=== PATIENT | female | born 1990 | race Caucasian/White ===

== ENCOUNTER 2020-11-12 05:38 | Inpatient (IN) | payer BC ==
[2020-11-12] VITALS (19 sets, daily range): BP systolic 87–119; BP diastolic 44–96; PULSE 50–72; TEMP 97.4–98.2
[~2020-11-12] VITALS: Ht 165.1 cm; Wt 73.8 kg
[~2020-11-12 05:38] MED LIST: LOESTRIN 24 FE1 TAB PO; NORCO 325 MG-7.1 TAB PO
--- NOTE | 2020-11-12 05:45 | NUR ---
G2L0 arrives to unit ambulatory for scheduled section. Clean gown on. Oriented to room, bed in low and locked position, call light within reach. Pt reports feeling good movement, denies contractions, or loss of fluid. Denies headaches, blurry vision or RUQ pain. US and toco explained and applied. Vital signs obtained. Plan of care reviewed. Spouse supportive at bedside. 0600 - 18G IV started in left forearm, admission labs obtained off IV start. Lactated Ringers infusing to gravity. Consents reviewed and signed with patient and spouse.
[2020-11-12 06:15] LABS: BASO % 0.3 % (0.0-2.0); EOS # 0.1 (0.0-0.7); EOS % 0.5 % (0-4.0); GRAN # 9.2 (1.4-6.5); GRAN % 71.4 % (42.2-75.2); HEMOGLOBIN 11.8 g/dl (12.5-16.0); LYMPH # 2.3 (1.2-3.4); LYMPH % 17.7 % (20.0-51.0); MEAN CELL VOLUME 92 fl (80.0-100.0); MEAN CORPUSCULAR HEMOGLOBIN 32 pg (27.0-31.0); MEAN CORPUSCULAR HGB CONC 35 g/dl (33.0-37.0); MEAN PLATELET VOLUME 10.7 fl (7.4-10.4); MONO # 1.2 (0.1-0.6); MONO % 9.6 % (1.7-9.3); PLATELET COUNT 278 K/mm3 (130-400); RED BLOOD COUNT 3.73 M/mm3 (4.10-5.30); REDCELL DISTRIBUTION WIDTH-CV 13.2 % (11.5-14.5)
[2020-11-12 06:17] LABS: HEMATOCRIT 34.2 % (37.0-47.0)
[2020-11-12] MEDS ORDERED: SENNA-S 50 MG-81 TAB PO (06:28)
[2020-11-12] MEDS ORDERED: PRENATAL (06:28)
[2020-11-12] MEDS ORDERED: ZYRTEC 10MG10 MG PO (06:29)
--- NOTE | 2020-11-12 07:15 | NUR ---
0715: POC REVIEWED WITH PT, REVIEWED HEART RATE STRIP, CATEGORY 1 BABY, ALL CONSENTS SIGNED, PT DENIES FURTHER QUESTIONS OR CONCERNS, AMBULATORY TO OR SUITE AT THIS TIME 0732: DELIVERY OF VIABLE FEMALE INFANT BY AT THIS TIME, CARE ASSUMED BY ELSA MERCADO RN 0815: PT TO PACU, STABLE CONDITION, FUNDUS FIRM AT UMBILICAS, LOCHIA WNL, POST OP ASSESSMENT AND VITALS CONTINUED AT THIS TIME, SCD'S ON BLE, CAO DRAINING CLEAR YELLOW URINE, DRESSING WTIH MINIMAL BLOODY SHOW, WILL CONTINUE TO MONITOR FOR INCREASED DRAINAGE TO DRESSING 0845: PT TO NURSERY VIA BED FOR SKIN TO SKIN WITH NEW INFANT, REMAINS STABLE, LOCHIA WNL, FUNDUS FIRM AT UMBILICAS
[2020-11-13 00:25] VITALS: BP 104/69; PULSE 54; TEMP 97.1
[2020-11-13 05:15] VITALS: BP 104/60; PULSE 57; TEMP 97.9
[2020-11-13 06:50] VITALS: BP 99/60; PULSE 54; TEMP 98.1
--- NOTE | 2020-11-13 10:26 | NUR ---
Initial visit attempt; Patient out of room. Linux K[employer] Developer left card of congratulations for the of her daughter and information regarding the availability of spiritual care at our hospital.
[2020-11-13] MEDS ORDERED: IBU800 M1 PO (12:29)
[2020-11-13] MEDS ORDERED: PERCOCET 325 MG1 TA2 PO (12:29)
[2020-11-13 16:23] VITALS: BP 102/63; PULSE 65; TEMP 98.6
[2020-11-13 21:00] VITALS: BP 101/67; PULSE 79; TEMP 97.9
[2020-11-14 08:30] VITALS: BP 109/68; PULSE 71; TEMP 97.6
[2020-11-14 16:25] VITALS: BP 112/68; PULSE 87; TEMP 98.1
== END 2020-11-14 17:23 | disposition home or self-care (01) | DRG 788 ==
LOC: OB 05:38
PROVIDERS: ADMIT Student in an Organized Health Care Education/Training Program
PROC: 10D00Z1 Extraction of Products of Conception, Low, Open Approach (ICD-10-PCS; principal; 2020-11-12)
DX: O32.1XX0 Maternal care for breech presentation, not applicable or unspecified (principal); Z3A.39 39 weeks gestation of pregnancy; Z37.0 Single live birth; O99.62 Diseases of the digestive system complicating childbirth; O99.52 Diseases of the respiratory system complicating childbirth; O99.344 Other mental disorders complicating childbirth; F41.9 Anxiety disorder, unspecified; O99.284 Endocrine, nutritional and metabolic diseases complicating childbirth; E28.2 Polycystic ovarian syndrome; J45.909 Unspecified asthma, uncomplicated; K21.9 Gastro-esophageal reflux disease without esophagitis; Z89.429 Acquired absence of other toe(s), unspecified side
CPT/HCPCS: J0690; J1885; J2370; J2405; J2590; J7120

== ENCOUNTER → 2020-11-21 | Outpatient (CLI) | payer BC ==
[~2020-11-21] MED LIST changes: +IBU800 M1 PO; +PERCOCET 325 MG1 TA2 PO; +PRENATAL; +SENNA-S 50 MG-81 TAB PO; +ZYRTEC 10MG10 MG PO
--- NOTE | 2020-11-21 15:41 | NUR ---
Pt, Edwige Quiroga, presents for outpatient consult with 9 day old baby girl, Zaria Quiroga, and pt's spouse Vasile. Zaria was born on [birth year] at 38.5 weeks gestation and weighed 5#9.6oz (2540 gms). Discharge weight was 5#7oz. Pt reports Zaria weighed 5#8.75oz at her appointment with Dr. Levy on 11/16/20. Today Zaria weighs 5#9.3oz (2532 gms). Zaria has been nursing with a nipple shield 7 of 8 feedings per day. She is supplemented with EBM ~1.5 per feeding. One feeding per day she is getting ~3oz EBM by bottle rather than going to the breast. Pt is pumping 8x/day and over each of the last 2 days she has collected 16-17oz. Pt is advised on latching without the nipple shield. Zaria latches well, characteristics of a good latch reviewed. After nursing the left breast she has a gain of 1.0oz (28 gms). After the right breast she gains 0.9oz (24 gms). Pt has been using football hold, instructed and assisted to latch in cross cradle on the right breast and Zaria has an additional gain of 0.3oz (10 gms). Total gain was 2.2oz (62 gms). Pt was also advised on breast compression to help move milk down breast while nursing. POC: Continue q 2-3 hours. Supplement ~1oz after each feeding, and continue pumping after feedings. F/U: Advised to have Zaria weighed at the end of this week at Dr. Levy's office because of low weight gain over previous 5 days. Pt to report this weight to this to determine follow up. Questions invited and answered.
== END ==
LOC: LAC 14:59
DX: Z39.1 Encounter for care and examination of lactating mother (principal); Z71.89 Other specified counseling

== ENCOUNTER → 2020-12-11 | Outpatient (CLI) | payer BC ==
--- NOTE | 2020-12-11 13:26 | NUR ---
Pt, Edwige Quiroga,presents for outpatient consult with 1 month old baby girl, Zaria Quiroga, to evaluate milk transfer and try nursing without the nipple shield. She is accompanied by her spouse, Vasile. Zaria was born on [birth year] and weighed 5#9.6oz (2540 gms), She was seen in consult on 11/21/20 and weighed 5#9.3oz. At that time she was being supplemented ~1-1.5oz EBM p each feeding. Zaria was seen by Dr. Levy on 11/23/20 and weighed 5#14oz. They were advised they could discontinue the routine supplement at that time. Today Zaria weighs 6#9.5 oz (2990 gm), for a gain of 0.64oz per day over the last 18 days. Pt is coached on latching baby without the shield, pt handles baby and breast well. After latching pt desires to switch from cross cradle to cradle hold, advised on monitoring if baby latches well. Initially Zaria remains latched but after a bit she is off, fussing. She is burped, the process is repeated, and again the breast pulls out of the mouth again. The third time pt keeps her hand under the breast and Zaria remains latched better. After nursing the right breast Zaria has a weight gain of 1.6oz (46 gms), and the left and 1.9oz (54 gms) from the right for a total of 3.5oz (100 gms). POC: Breastfeed ad shanna, allowing Zaria to wake for night feedings. F/U: With Dr. Benitez in two days for one month appt. Pt to contact if weight not within desired range. Questions invited and answered.
== END ==
LOC: LAC 13:01
DX: Z39.1 Encounter for care and examination of lactating mother (principal); Z71.89 Other specified counseling